=== PATIENT | female | born 1985 | race Two or more races ===

== ENCOUNTER 2023-04-26 07:00 | Day surgery (SDC) | payer OTHER ==
[~2023-04-26 07:00] MED LIST: PRENA1 SOFTGEL1 EACH PO; SYNTHROID50 MCG PO
== END 2023-04-26 15:45 | disposition home or self-care (01) ==
LOC: CIR.AMB 07:00
PROVIDERS: ATTEND Obstetrics & Gynecology Maternal & Fetal Medicine
DX: O02.1 Missed abortion (principal); O72.2 Delayed and secondary postpartum hemorrhage; Z20.822 Contact with and (suspected) exposure to COVID-19